=== PATIENT | male | born 1975 | race Caucasian/White ===

== ENCOUNTER 2017-12-20 16:27 | Emergency (ER) | payer SELFPAY ==
[~2017-12-20] VITALS: Ht 170.2 cm; Wt 81.6 kg
[2017-12-20 16:32] VITALS: Ht 170.2 cm; Wt 81.6 kg
[2017-12-20 18:41] LABS: CALCIUM 8.3 mg/dL (8.5-10.1); CARBON DIOXIDE 27.6 mmol/L (21-32); CHLORIDE SERUM 105 mmol/L (98-107); CREATININE SERUM 0.7 mg/dL (0.7-1.3); GFR1 > 60 mL/min; GLUCOSE SERUM 89 mg/dL (74-106); POTASSIUM SERUM 3.9 mmol/L (3.5-5.1); SODIUM SERUM 140 mmol/L (136-145)
[2017-12-20 18:42] LABS: LIPASE 101 IU/L (73-393)
[2017-12-20 18:49] LABS: BASOPHIL % 0.8 % (0-2); PLATELET COUNT 278 x10^3mcL (130-400); RED CELL DISTRIBUTION WIDTH 13.3 % (11.5-14.5)
[2017-12-20 20:33] VITALS: BP 129/74
== END 2017-12-20 20:33 | disposition home or self-care (01) ==
LOC: ED 16:27
PROVIDERS: Emergency Medicine Emergency Medical Services
DX: S13.4XXA Sprain of ligaments of cervical spine, initial encounter (principal); S30.1XXA Contusion of abdominal wall, initial encounter; V43.52XA Car driver injured in collision with other type car in traffic accident, initial encounter; W22.10XA Striking against or struck by unspecified automobile airbag, initial encounter; Y93.I9 Activity, other involving external motion; Y99.8 Other external cause status; Y92.89 Other specified places as the place of occurrence of the external cause
CPT/HCPCS: J1885; Q9967